=== PATIENT | male | born 1975 ===

== ENCOUNTER → 2021-12-06 | Day surgery (SDC) | payer OTHER ==
[~2021-12-06] VITALS: Ht 182.9 cm; Wt 102.0 kg
[~2021-12-06] MED LIST: ASPIRIN EC81 MG PO; BUPRENORPHINE HC8 MG SL; BUSPAR5 MG PO; DEPAKOTE ER250 MG PO; DEPAKOTE500 MG PO; IBUPROFEN400 MG PO; KETOROLAC TROME10 MG PO; LEVAQUIN500 MG PO; MELATONIN10 MG PO; MOBIC7.5 MG PO; PHENERGAN12.5 M1 PO; PREDNISONE 20MG20 MG PO; PROAIR HFA8.5 GM INH; REMERON15 MG PO; SENOKOT8.6 MG PO; VENTOLIN HFA IN18 GM INH; VIBRAMYCIN100 MG PO; VISTARIL25 MG PO; XANAFLEX PO; ZOFRAN PO; [UNRECOGNIZED DRUG - OTHER] PO
[2021-12-06 11:55] LABS: INR 1.01 (0.9-1.2); PROTHROMBIN TIME 12.7 SECONDS (11.8-13.4)
[2021-12-06 11:58] LABS: BASOPHIL 0.2 % (0-2); EOSINOPHIL 0 % (0-5); HGB 13.2 g/dl (13.2-18.0); LYMPHOCYTE 8.2 % (15-48); MCH 31.9 pg (25.0-31.0); MCHC 34.7 g/dL (32.0-36.0); MCV 91.8 fL (78.0-100.0); MONOCYTE 4.9 % (0-12); MPV 9.4 fL (6.0-9.5); NEUTROPHIL 85.7 % (41-80); NRBC 0; PLT 318 K/uL (150-400); RBC 4.14 M/uL (4.70-6.00); RDW 12.2 % (11.5-14.0); WBC 12.9 K/uL (4.0-10.5)
== END | disposition home or self-care (01) ==
LOC: FAS 08:48
PROVIDERS: Oral & Maxillofacial Surgery
DX: K02.9 Dental caries, unspecified (principal); K04.7 Periapical abscess without sinus; G40.909 Epilepsy, unspecified, not intractable, without status epilepticus; F11.11 Opioid abuse, in remission; F10.21 Alcohol dependence, in remission; Z88.1 Allergy status to other antibiotic agents; Z88.5 Allergy status to narcotic agent; Z88.8 Allergy status to other drugs, medicaments and biological substances
CPT/HCPCS: D7140; D7210; D7310; 36415; 71045; 85025; 85610; 85730; J1100; J1885; J2250; J2704; J3010; J7120